=== PATIENT | male | born 1950 | race Caucasian/White ===

== ENCOUNTER 2025-05-05 11:17 | Inpatient (IN) | payer MEDICARE, SELFPAY ==
[2025-05-05] VITALS (14 sets, daily range): BP systolic 134–176; BP diastolic 60–86; PULSE 71–85; RESP 18–26; TEMP 35.8–37.7; O2SAT 79–97; BMI 28.6; BMI 29.3
--- NOTE | 2025-05-05 11:27 | ED_ITS ---
HPI - Weakness General Chief complaint: Weakness Stated complaint: Fever/weakness Time Seen by Provider: 05/05/25 11:20 History of Present Illness HPI Narrative: Patient is a 74-year-old male history of diabetes coronary artery disease, lower extremity cellulitis presenting to day with just increasing weakness. He reports that [place] but was having some of his normal 18 pains. Today his called EMS because she was worried he was having increasing weakness. EMS reports fever but he does have 99.9F temperature here. He is also noted to be severely hypoxic on 6 L nasal cannula 90%. EMS reports that he did drop into the 70s with exertion. He denies it he is having shortness of breath or chest pain. He denies any productive cough. at bedside reports that [place] got [place] she noticed today that he was a little confused and was shaking uncontrollably. She did not notice that he had a fever. He has previously been septic before from cellulitis. She was quite concerned and brought him directly Related Data Home Medications ?Medication ?Instructions ?Recorded ?Confirmed allopurinol 300 mg tablet 300 mg PO DAILY 05/05/25 aspirin 81 mg tablet 81 mg PO DAILY 05/05/2504/18 atenolol 50 mg tablet 50 mg PO DAILY 05/05/2504/18 atorvastatin 40 mg tablet 40 mg PO DAILY 05/05/2504/18 betamethasone, augmented 0.05 % 1 applic topical BID 1 05/05/25 topical cream calcitriol 0.25 mcg capsule 0.25 mcg PO DAILY 05/05/25 05/05/25 dapagliflozin propanediol 10 mg 10 mg PO DAILY 5 05/05/25 tablet (Farxiga) gabapentin 300 mg capsule 300 mg PO 3XD 05/05/2505/05 hydrocodone 10 mg-acetaminophen 1 tab PO DAILY PRN chr onic pain 05/05/25 05/05/25 325 mg tablet insulin glargine 100 unit/mL (3 33 unit SUBCUT DAILY 1 05/05/25 mL) subcutaneous pen (Lantus Solostar U-100 Insulin) lisinopril 40 mg tablet 40 mg PO DAILY 05/05/2504/18 nifedipine 60 mg tablet,extended 60 mg PO DAILY 05/05/25 release semaglutide 7 mg tablet (Rybelsus) 7 mg PO .every othe r day 05/05/25 05/05/25 sennosides 8.6 mg tablet (Linda-adrien) 8.6 mg PO ONCE PM 05/05/25 05/05/25 vit C 250 mg-vit E 90 mg-zinc 40 1 tab PO BID 05/05/25 05/05/25 mg-copper 1 [id number]-[id number] capsule (PreserVision AREDS-2) Allergies Allergy/AdvReac Type Severity Reaction Status Date / Time amoxicillin (From Augmentin) Allergy Unknown Abdominal Verified 05/05/25 14:20 Pain cephalexin Allergy Unknown Rash Verified 05/05/25 14:20 clavulanic acid (From Allergy Unknown Abdominal Verified 05/05/25 14:20 Augmentin) Pain colchicine Allergy Unknown Rash Verified 05/05/25 14:20 Patient History Medical History Chronic low back pain Chronic, continuous use of opioids CKD stage 4 due to type 2 diabetes mellitus Coronary artery disease Diabetic neuropathy Essential hypertension History of tobacco use Mixed hyperlipidemia Peripheral arterial disease Stasis dermatitis Type 2 diabetes mellitus with stage 4 chronic kidney disease Umbilical hernia Venous (peripheral) insufficiency Social History household members: spouse Smoking Status: Never smoker alcohol intake: current Exam Initial Vital Signs Initial Vital Signs: Vital Signs Temperature 99.9 F H 05/05/25 11:24 Pulse Rate 85 05/05/25 11:24 Respiratory Rate 22 05/05/25 11:24 Blood Pressure 176/72 H 05/05/25 11:24 Pulse Oximetry 79 L 05/05/25 11:24 Oxygen Delivery Method Room Air 05/05/25 11:24 GENERAL: Alert chronically ill 74-year-old male and in [no acute] distress. HEENT: Head atraumatic,EOMI, pupils reactive, face symmetric, [moist] mucous membranes CARDIOVASCULAR: Regular rate and rhythm without murmurs, rubs or gallops. RESPIRATORY: Decreased breath sounds ABDOMEN: Soft, nontender. Normoactive bowel sounds all 4 quadrants. No guarding or rebound. EXTREMITIES: Normal range of motion, no clubbing or edema. Neurovascularly intact NEUROLOGICAL: Alert and oriented x4.Normal gait and speech. Cranial nerves II through XII grossly intact. SKIN: Lower extremity chronic venous stasis with some mild erythema no significant streaking or extended. Course Orders Ordered: ED Orders 05/05/25 11:27 CT angio chest PE protocol Stat 05/05/25 11:28 Complete Blood Count AUTO DIFF Stat Comprehensive Metabolic Panel Stat Lactate (Lactic Acid) Stat NT-proBNP (BNP-Adult 18+) Stat PTT Partial Thromboplastin Tanner Stat Procalcitonin Stat Prothrombin Time INR Stat Respiratory Panel (Film Array) Stat Troponin & CK Cardiac Panel Stat EKG-12 Lead Stat 05/05/25 11:55 Blood Culture Stat 05/05/25 12:21 ABG [Arterial Blood Gas] STAT 05/05/25 12:53 Urinalysis and Microscopic Stat Acetaminophen (Acetaminophen 325 Mg Tablet) 650 mg PO Q6H PRN PRN Reason: Fever/Mild Pain (1-3) Hydrocodone Bitart/Acetaminophen (Hydrocodone/Acet 10/325 Tablet) 1 tab PO DAILY PRN PRN Reason: Pain, Moderate (4-6) Last Admin: 05/05/25 18:25 Dose: 1 tab Documented By: BG Allopurinol (Allopurinol 100 Mg Tablet) 150 mg PO DAILY [facility] Aspirin (Aspirin Ec 81 Mg Tablet) 81 mg PO DAILY [facility] Atenolol (Atenolol 25 Mg Tablet) 50 mg PO DAILY [facility] Atorvastatin Calcium (Atorvastatin 20 Mg Tablet) 40 mg PO DAILY [facility] Betamethasone Dipropionate (Betamethasone Dip 0.05% Cream 15 Gm) 1 applic TOP BID [facility] Calcitriol (Calcitriol 0.25 Mcg Capsule) 0.25 mcg PO DAILY [facility] Enoxaparin Sodium (Enoxaparin 30 Mg/0.3 Ml Syringe) 30 mg SUBCUT DAILY [facility] Gabapentin (Gabapentin 300 Mg Capsule) 900 mg PO BEDTIME [facility] Dextrose (D10w) 100 mls @ 1,200 mls/hr IV PRN PRN PRN Reason: Hypoglycemia Levofloxacin (Levaquin) 750 mg in 150 mls @ 100 mls/hr IV Q48H [facility] Insulin Glargine (Insulin Glargine 100 Unit/Ml 3ml Pen) 33 unit SUBCUT BEDTIME [facility] Insulin Human Lispro (Insulin Lispro 100 Unit/Ml 3ml Vial) 0 unit SUBCUT ACHS INO; Protocol Last Admin: 05/05/25 16:55 Dose: Not Given Documented By: MM Lisinopril (Lisinopril 20 Mg Tablet) 40 mg PO DAILY [facility] Lutein (Vit C/E/Zn/Coppr/Lutein/Zeaxan Capsule) 1 cap PO BID [facility] Naloxone HCl (Naloxone 0.4 Mg/Ml Vial) 0.2 mg IV Q2MIN PRN PRN Reason: Opiate Reversal Nifedipine (Nifedipine 30 Mg Tab Er) 60 mg PO DAILY [facility] Sennosides (Sennosides 8.6 Mg Tablet) 8.6 mg PO BEDTIME IN[facility] Discontinued Medications Azithromycin (Azithromycin 250 Mg Tablet) 500 mg PO Q24H INO Stop: 05/09/25 11:59 Ceftriaxone Sodium 2,000 mg/ (Sodium Chloride) 100 mls @ 200 mls/hr IV NOW ONE Stop: 05/05/25 12:21 Last Infusion: 05/05/25 14:06 Dose: Infused Documented By: Admin: 05/05/25 13:24 Dose: 200 mls/hr Documented By: EMERSONF Azithromycin 500 mg/ Dextrose 250 mls @ 250 mls/hr IV NOW ONE Stop: 05/05/25 12:21 Last Infusion: 05/05/25 14:05 Dose: Infused Documented By: Admin: 05/05/25 12:32 Dose: 250 mls/hr Documented By: SGF Sodium Chloride (Normal Saline 0.9%) 1,000 mls @ 1,000 mls/hr IV BOLUS ONE Stop: 05/05/25 14:31 Last Infusion: 05/05/25 16:56 Dose: Infused Documented By: Admin: 05/05/25 14:06 Dose: 1,000 mls/hr Documented By: Ceftriaxone Sodium 1,000 mg/ (Sodium Chloride) 100 mls @ 200 mls/hr IV Q24H [facility] Stop: 05/11/25 11:59 Non-Formulary Medication (Dapagliflozin Propanediol [Farxiga]) 10 mg PO DAILY [facility] Non-Formulary Medication (Semaglutide [Rybelsus]) 7 mg PO .every other day INO Vital Signs Vital signs: Vital Signs - 8 hr 05/05/25 11:24 05/05/25 11:35 05/05/25 11:51 Temperature 99.9 F H Pulse Rate 85 Respiratory Rate 22 Blood Pressure 176/72 H 158/86 H Pulse Oximetry 79 L 92 Oxygen Delivery Method Room Air 05/05/25 11:51 05/05/25 11:53 05/05/25 11:53 Temperature Pulse Rate 85 81 Respiratory Rate 26 H 26 H Blood Pressure 156/82 H Pulse Oximetry 89 L 91 Oxygen Delivery Method 05/05/25 12:00 05/05/25 12:00 05/05/25 12:30 Temperature Pulse Rate 80 82 Respiratory Rate 23 18 Blood Pressure 163/74 H Pulse Oximetry 92 95 Oxygen Delivery Method 05/05/25 12:30 05/05/25 13:00 05/05/25 13:01 Temperature Pulse Rate 80 Respiratory Rate 23 Blood Pressure 168/76 H 163/69 H Pulse Oximetry 93 Oxygen Delivery Method 05/05/25 13:01 05/05/25 13:30 05/05/25 13:30 Temperature 99.3 F Pulse Rate 80 79 Respiratory Rate 22 26 H Blood Pressure 159/69 H Pulse Oximetry 95 95 Oxygen Delivery Method 05/05/25 14:00 05/05/25 14:00 05/05/25 14:30 Temperature Pulse Rate 79 Respiratory Rate 24 Blood Pressure 149/70 H 134/63 Pulse Oximetry 97 Oxygen Delivery Method 05/05/25 14:30 Temperature Pulse Rate 71 Respiratory Rate 19 Blood Pressure Pulse Oximetry 95 Oxygen Delivery Method MDM - Weakness Lab Data 05/05/25 11:28 05/05/25 11:28 Labs: Lab Results 05/05/25 05/05/25 05/05/25 Range/Units 11:28 12:44 12:53 WBC 16.9 H (4.5-11.0) X10^3/uL RBC 3.74 L (4.5-5.9) X10^6/uL Hgb 11.3 L (13.5-17.5) g/dL Hct 35.2 L (41-53) % MCV 94.2 (80-100) fL MCH 30.3 (26-34) PG MCHC 32.2 (30-36) % RDW 16.3 H (11.6-14.8) % Plt Count 210 (150-400) X10^3/uL Neut % (Auto) 85.9 H (50-75) % Lymph % (Auto) 7.6 L (25-40) % [place] % (Auto) 4.7 (3-14) % Eos % (Auto) 1.2 L (2-4) % Baso % (Auto) 0.6 (0-2) % Neut # (Auto) 69824 H (0133-1223) /uL Lymph # (Auto) 1300 (4253-0123) /uL [place] # (Auto) 800 (0-900) /uL Eos # (Auto) 200 (0-450) /uL Baso # (Auto) 100 (0-100) /uL PT 11.0 (9.4-12.5) SECONDS INR 1.0 (0.9-1.3) APTT 27 (25.1-36.5) SECONDS ABG Sample Site Left radial ABG pH 7.39 (7.35-7.45) ABG pCO2 34.8 L (35-45) mmHg ABG pO2 76 L (80-100) mmHg ABG HCO3 21 L (23-27) mmol/L ABG Total CO2 20 L (23-27) mmol/L ABG O2 Saturation 95 (95-100) % ABG Base Excess -3.4 L (-2-3) mmol/L Fritz Test Positive O2 Delivery Device Cannula FiO2 % 48.0 % % Sodium 143 (137-145) mmol/L Potassium 5.0 (3.4-5.1) mmol/L Chloride 111 H (98-107) mmol/L Carbon Dioxide 18 L (22-32) mmol/L BUN 55 H (9-20) mg/dL Creatinine 2.85 H (0.66-1.25) mg/dL Estimated GFR 22 L (>60) mL/min BUN/Creatinine Ratio 19.3 (6-22) Glucose 116 H (70-99) mg/dL Lactate 1.9 (0.7-2.1) mmol/L Calcium 9.7 (8.4-10.2) mg/dL Total Bilirubin 0.9 (0.2-1.3) mg/dL AST 34 (17-59) IU/L ALT 18 (<50) IU/L Alkaline Phosphatase 96 (38-126) U/L Total Creatine Kinase 228 H (55-170) U/L Troponin I 0.016 (0.01-0.034) ng/mL NT-Pro-B Natriuret Pep 1080 H (<450) pg/mL Total Protein 7.9 (6.3-8.2) g/dL Albumin 4.4 (3.5-5.0) g/dL Globulin 3.5 (1.7-4.1) g/dL Albumin/Globulin Ratio 1.3 (1.0-2.8) Procalcitonin 0.207 (<0.5) ng/mL Urine Color Yellow Urine Appearance Clear Urine pH 6.0 (4.5-8.0) Ur Specific [place] 1.015 (1.000-1.035) Urine Protein 2+ H (Negative) Urine Glucose (UA) 1+ H (Negative) g/dL Urine Ketones Negative (NEGATIVE) Urine Occult Blood 1+ H (Negative) Urine Nitrate Negative (Negative) Urine Bilirubin Negative (NEGATIVE) Urine Urobilinogen 0.2 (0.2) E.U./dL Ur Leukocyte Esterase Negative (NEGATIVE) Urine RBC 0-1/hpf (0-5/HPF) Urine WBC 0-1/hpf (0-5/HPF) Ur Squamous Epith Cells 0-1 /hpf (0-5/HPF) Urine Bacteria Occasional (0-1) (None) Ur Culture Indicated? Cult not indicated Vol Urine Centrifuged 10ml (spun) Chlamy pneumoniae PCR Not detected (Not Detect) Adenovirus (PCR) Not detected (Not Detect) B. pertussis DNA (PCR) Not detected (Not Detect) B.parapertussis DNA PCR Not detected (Not Detecte) Coronavirus OC43 (PCR) Not detected (Not Detect) Coronavirus HKU1 (PCR) Not detected (Not Detect) Coronavirus 229E (PCR) Not detected (Not Detect) SARS-CoV-2 (PCR) Not detected (Not Detecte) Coronavirus NL63 (PCR) Not detected (Not Detect) Human Metapneumovir PCR Not detected (Not Detect) Influenza Type A (PCR) Not detected (Not Detect) Influenza Type B (PCR) Not detected (Not Detect) M. pneumoniae (PCR) Not detected (Not Detect) Parainfluenza 1 (PCR) Not detected (Not Detect) Parainfluenza 2 (PCR) Not detected (Not Detect) Parainfluenza 3 (PCR) Not detected (Not Detect) Parainfluenza 4 (PCR) Not detected (Not Detect) RSV (PCR) Not detected (Not Detect) Entero/Rhino (PCR) Not detected (Not Detect) Urine Dip Bedside Urine Glucose 500 mg/dl Bedside Urine Bilirubin - Negative Bedside Urine Ketone - Negative Urine Specific [place] 1.010 Bedside Urine Occult Blood + Bedside Urine pH 6.0 Bedside Urine Protein + 30 Bedside Urine Urobilinogen - Negative Bedside Urine Nitrite - Negative Bedside Urine Leukocytes - Negative Esterase Imaging Data CT scan - chest: Radiologist Impression: PROCEDURE: CT ANGIO CHEST PE PROTOCOL INDICATIONS: sever hypoxia TECHNIQUE: After the administration of intravenous contrast, 2 mm thick sections acquired from the pulmonary apices to the posterior costophrenic angles. MIP reformats of the arterial vasculature were utilized. For radiation dose reduction, the following was used: automated exposure control, adjustment of mA and/or kV according to patient size. COMPARISON: None. FINDINGS: Pulmonary arteries: Pulmonary arteries are normal in size, and demonstrate no intraluminal filling defects to suggest central pulmonary embolism. Lower Neck: No enlarged lymph nodes. Thyroid: No thyroid nodules which require sonographic follow up, per consensus guidelines. Axillae: No enlarged lymph nodes. Chest Wall: Unremarkable. Bones: Unremarkable. Lungs and Pleura: Bilateral lower lobe pulmonary infiltrates consistent with pneumonia. No pleural effusions. Mediastinal vascular clips and noted. Mediastinal adenopathy measures up to 1.3 cm Heart: Heart size is normal. No pericardial effusion. Thoracic Vessels: No aortic aneurysm. Mediastinum and Cathy: No enlarged lymph nodes. Esophagus: No wall thickening. No hiatal hernia. Upper Abdomen: Visualized upper abdomen solid organs and bowel loops appear normal. IMPRESSION: No evidence of pulmonary embolism, aortic dissection or aneurysm. Bilateral lower lobe dense pulmonary infiltrates consistent with pneumonia. Approved by: Joseph Schafer M.D. on 05/05/2025 at 11:56 ECG Data Attestation: I personally reviewed and interpreted this ECG as follows: Interpretation: Junction rate 84 PVC noted MDM Narrative Medical decision making narrative: MDM CC: Weakness Complicating co-morbidities: Diabetes, coronary artery disease Data collected from: and patient Medical records reviewed: None Differential considered: Viral illness pneumonia congestive heart failure pulmonary embolism pneumothorax Exam documented above, pertinent findings include: Chronically ill 74-year-old male decreased breath sounds abdomen soft nontender chronically lower extremity erythema Lab Test results independently reviewed as above. Pertinent findings: CBC WBC 16.9 with left shift CMP sodium is 143 potassium 5.0 chloride 111 carbon dioxide 18 BUN 55 creatinine 2.85 glucose 116 unclear what his baseline kidney function is Lactate 1.9, procalcitonin 0.20 Bilirubin liver enzymes within normal limits Troponin 0.016 BNP 1080 ABG 7.39/34.8/76/21 Independently reviewed EKG as above junctional rhythm rate 84 no ischemia none prior Imaging studies independently reviewed: CT angio no pulmonary embolisms bilateral lower lobe dense infiltrates with a Consultations: [ Dr. Batista in ED to see and evaluate patient Treatments: IV fluids, Rocephin and azithromycin Discussion Patient is 74-year-old male presenting today with weakness. . He is found to be hypoxic requiring 5 L nasal cannula. His ABG does show he has a PaO2 of 76 on about [address] angio confirms that he has pneumonia. He does have leukocytosis of 16 with a left shift however he has a normal lactate. His blood pressure and heart rate are stable he is actually hypertensive and not hypotensive. He does not have any sign of severe sepsis. He is treated for community-acquired pneumonia with Rocephin and azithromycin. I did discuss with patient and he is a code would be intubated if needed. He currently is tolerating nasal cannula well Discharge Plan Departure Patient Disposition: Admitted As Inpatient Clinical Impression: Acute hypoxic respiratory failure, Pneumonia Admit Date/Time: 05/05/25 14:30 Admit Provider: Leroy Batista V
--- NOTE | 2025-05-05 11:28 | EKG_ITS ---
[address] [id number] [address] [address] Test Date: 2025-05-05 Pat Name: Doe Schwartz Department: Room: Gender: Male Performance Consultant: : 1950 Requested By: Order Number: [id number] Reading MD: Evin Trinh MD Measurements Intervals [place] Rate: 84 P: [place]: QRS: -20 QRSD: 98 T: 59 QT: 370 QTc: 437 Interpretive Statements Unknown supraventricular rhythm NO PRIOR TRACING Electronically Signed On 05-05-2025 14:31:56 PDT by Evin Trinh MD
[2025-05-05 11:43] LABS: Add Manual Diff / Slide Review NO; Hematocrit 35.2 % (41-53); Hemoglobin 11.3 g/dL (13.5-17.5); Lymphocytes Absolute Auto 1300 /uL (1100-4500); Mean Corpuscular HGB Conc 32.2 % (30-36); Mean Corpuscular Hemoglobin 30.3 PG (26-34); Mean Corpuscular Volume 94.2 fL (80-100); Platelet Count 210 X10^3/uL (150-400)
[2025-05-05 11:51] LABS: INR 1.0 (0.9-1.3); Prothrombin Time 11.0 SECONDS (9.4-12.5)
[2025-05-05 11:57] LABS: Alanine Aminotransferase 18 IU/L (<50); Albumin 4.4 g/dL (3.5-5.0); Albumin Globulin Ratio 1.3 (1.0-2.8); Alkaline Phosphatase 96 U/L (38-126); Blood Urea Nitrogen 55 mg/dL (9-20); Calcium 9.7 mg/dL (8.4-10.2); Carbon Dioxide 18 mmol/L (22-32); Chloride 111 mmol/L (98-107); Creatine Kinase 228 U/L (55-170); Estimated Glomerular Filt Rate 22 mL/min (>60); Globulin 3.5 g/dL (1.7-4.1); Glucose 116 mg/dL (70-99); Sodium 143 mmol/L (137-145); Total Protein 7.9 g/dL (6.3-8.2)
[2025-05-05 11:58] LABS: HEMOLYSIS 70 (0-50); Lactate (Lactic Acid) 1.9 mmol/L (0.7-2.1); PTT Partial Thromboplastin Tim 27 SECONDS (25.1-36.5); Potassium 5.0 mmol/L (3.4-5.1)
[2025-05-05 12:07] LABS: NT-proBNP (BNP-Adult 18+) 1080 pg/mL (<450)
[2025-05-05 12:09] LABS: Troponin I 0.016 ng/mL (0.01-0.034)
[2025-05-05 12:14] LABS: Procalcitonin 0.207 ng/mL (<0.5)
[2025-05-05 12:32] LABS: Coronavirus NL 63 Not Detected (Not Detect); SARS- CoV-2 Not Detected (Not Detecte)
[2025-05-05] MEDS: AZITHROMYCIN 500 MG in DEXTROSE 5% IN WATER 250 ML 250 MG IV (12:32)
[2025-05-05 12:48] LABS: Allen Test for ABG Passed? Positive; Blood Gas Collection Site Left Radial; Delivery System Cannula; HCO3 ABG 21 mmol/L (23-27); Oxygen Saturation ABG 95 % (95-100); PCO2 ABG 34.8 mmHg (35-45); PO2 ABG 76 mmHg (80-100); TCO2 ABG 20 mmol/L (23-27)
[2025-05-05 13:09] LABS: Appearance Urine UA CLEAR; Bilirubin Urine UA NEGATIVE (NEGATIVE); Color Urine UA YELLOW; Glucose Urine UA 1+ g/dL (Negative); Ketones Urine UA NEGATIVE (NEGATIVE); Leukocyte Esterase Urine UA NEGATIVE (NEGATIVE); Nitrite Urine UA NEGATIVE (Negative); Occult Blood Urine UA 1+ (Negative); Protein Urine UA 2+ (Negative); Specific Gravity Urine UA 1.015 (1.000-1.035); Urobilinogen Urine UA 0.2 E.U./dL (0.2); pH Urine UA 6.0 (4.5-8.0)
[2025-05-05 13:17] LABS: Culture Indicated Urine Cult Not Indicated
[2025-05-05] MEDS: cefTRIAXone 2,000 MG in SODIUM CHLORIDE 0.9% 100 ML 200 MG IV (13:24)
[2025-05-05] MEDS: SODIUM CHLORIDE 0.9% 1,000 ML 1000 ML IV (14:06)
--- NOTE | 2025-05-05 14:53 | PM.HP.IH.1 ---
History of Present Illness History of Present Illness Date Patient Seen: 05/05/25 Time Patient Seen: 14:05 Chief complaint: Fever/weakness Narrative: 74-year-old man with diabetes, coronary disease, peripheral arterial disease, painful peripheral neuropathy, stage 4 chronic kidney disease and hypertension was camping nearby when he experienced shortness of breath and presented to the emergency department. On further reflection he has had chills over the past several days before he went camping, feeling of these might have been related to his chronic diabetic neuropathy symptoms, but did not have fevers, and did not note significant coughing, and was without nausea, vomiting, abdominal pain, constipation, diarrhea or urinary symptoms. He presented the emergency department where he was found to have bilateral lower lobe pneumonia count was hypoxic with oxygen saturations of 79% on presentation. He was given IV ceftriaxone and azithromycin in the emergency department and admitted for further management and evaluation. Subsequent records demonstrate a history of rash to cephalexin exposure. He is seen in the emergency department and subsequently on the medical floor and denies rash or itching at this time. Baseline creatinine per outside records was 2.43 mg/dL with EGFR 27 mL/minute on 12/13/2024. [facility] Medical History Chronic low back pain Chronic, continuous use of opioids CKD stage 4 due to type 2 diabetes mellitus Coronary artery disease Diabetic neuropathy Essential hypertension History of tobacco use Mixed hyperlipidemia Peripheral arterial disease Stasis dermatitis Type 2 diabetes mellitus with stage 4 chronic kidney disease Umbilical hernia Venous (peripheral) insufficiency Social History Smoking Status: Never smoker Meds Home Medications and Allergies Home Medications ?Medication ?Instructions ?Recorded ?Confirmed ?Type allopurinol 300 mg tablet 300 mg PO DAILY 05/05/25 05/05/25 History aspirin 81 mg tablet 81 mg PO DAILY 05/05/25 05/05/25 History atenolol 50 mg tablet 50 mg PO DAILY 05/05/25 05/05/25 History atorvastatin 40 mg tablet 40 mg PO DAILY 05/05/25 05/05/25 History betamethasone, augmented 0.05 % 1 applic topical BID 05/05/25 05/05/25 History topical cream calcitriol 0.25 mcg capsule 0.25 mcg PO DAILY 05/05/25 05/05/25 History dapagliflozin propanediol 10 mg 10 mg PO DAILY 05/05/25 05/05/25 History tablet (Farxiga) gabapentin 300 mg capsule 300 mg PO 3XD 05/05/25 05/05/25 History hydrocodone 10 mg-acetaminophen 1 tab PO DAILY PRN chronic pain 05/05/25 05/05/25 History 325 mg tablet insulin glargine 100 unit/mL (3 33 unit SUBCUT DAILY 05/05/25 05/05/25 History mL) subcutaneous pen (Lantus Solostar U-100 Insulin) lisinopril 40 mg tablet 40 mg PO DAILY 05/05/25 05/05/25 History nifedipine 60 mg tablet,extended 60 mg PO DAILY 05/05/25 05/05/25 History release semaglutide 7 mg tablet (Rybelsus) 7 mg PO .every other day 05/05/25 05/05/25 History sennosides 8.6 mg tablet (Linda-adrien) 8.6 mg PO ONCE PM 05/05/25 05/05/25 History vit C 250 mg-vit E 90 mg-zinc 40 1 tab PO BID 05/05/25 05/05/25 History mg-copper 1 ip-utcvft-zxdbiu capsule (PreserVision AREDS-2) Allergies Allergy/AdvReac Type Severity Reaction Status Date / Time amoxicillin (From Augmentin) Allergy Unknown Abdominal Verified 05/05/25 14:20 Pain cephalexin Allergy Unknown Rash Verified 05/05/25 14:20 clavulanic acid (From Allergy Unknown Abdominal Verified 05/05/25 14:20 Augmentin) Pain colchicine Allergy Unknown Rash Verified 05/05/25 14:20 Review of Systems Review of Systems ROS: Yes All systems reviewed with the patient and are negative except as otherwise documented Exam Vital Signs (past 8 hours): - 05/05/25 11:24 05/05/25 11:35 05/05/25 11:51 Temperature 99.9 F H Pulse Rate 85 Respiratory Rate 22 Blood Pressure 176/72 H 158/86 H Pulse Oximetry 79 L 92 Oxygen Delivery Method Room Air 05/05/25 11:51 05/05/25 11:53 05/05/25 11:53 Temperature Pulse Rate 85 81 Respiratory Rate 26 H 26 H Blood Pressure 156/82 H Pulse Oximetry 89 L 91 Oxygen Delivery Method 05/05/25 12:00 05/05/25 12:00 05/05/25 12:30 Temperature Pulse Rate 80 82 Respiratory Rate 23 18 Blood Pressure 163/74 H Pulse Oximetry 92 95 Oxygen Delivery Method 05/05/25 12:30 05/05/25 13:00 05/05/25 13:01 Temperature Pulse Rate 80 Respiratory Rate 23 Blood Pressure 168/76 H 163/69 H Pulse Oximetry 93 Oxygen Delivery Method 05/05/25 13:01 05/05/25 13:30 05/05/25 13:30 Temperature 99.3 F Pulse Rate 80 79 Respiratory Rate 22 26 H Blood Pressure 159/69 H Pulse Oximetry 95 95 Oxygen Delivery Method 05/05/25 14:00 05/05/25 14:00 05/05/25 14:30 Temperature Pulse Rate 79 Respiratory Rate 24 Blood Pressure 149/70 H 134/63 Pulse Oximetry 97 Oxygen Delivery Method 05/05/25 14:30 Temperature Pulse Rate 71 Respiratory Rate 19 Blood Pressure Pulse Oximetry 95 Oxygen Delivery Method Oxygen Delivery Method Room Air Narrative Exam Narrative: GENERAL: This is a well-nourished, well-developed patient, in no apparent distress. HEAD: Atraumatic. Normocephalic. No temporal or scalp tenderness. He has a bandage on his forehead that he states is from recent dermatologic work on a skin lesion. EYES: Pupils equal round and reactive. Extraocular motions intact. No scleral icterus. No injection or drainage. ENT: Mucous membranes pink and moist. NECK: Trachea midline. No JVD, bruits or lymphadenopathy. Supple, nontender, no meningeal signs. CARDIOVASCULAR: Regular rate and rhythm without murmurs, gallops, or rubs. RESPIRATORY: Posterior basilar crackles, otherwise good air movement, no wheezing or rhonchi. GASTROINTESTINAL: Abdomen soft, non-tender, nondistended. EXTREMITIES: 1+ edema with chronic stasis dermatitis changes in the lower extremities. BACK: Nontender without deformity or crepitance. No flank tenderness. NEUROLOGIC: Alert, oriented, speech fluent, full upper and lower motor strength, no focal deficits evident. DERMATOLOGIC: No rashes or skin lesions except stasis dermatitis as noted above. Objective Imaging Chest CT angiography 05/05/2025: : Radiologist's impression: No evidence of pulmonary embolism, aortic dissection or aneurysm. Bilateral lower lobe dense pulmonary infiltrates consistent with pneumonia. Labs 05/05/25 11:28 05/05/25 11:28 Labs: Laboratory Results - last 24 hr 05/05/25 05/05/25 05/05/25 11:28 12:44 12:53 WBC 16.9 H RBC 3.74 L Hgb 11.3 L Hct 35.2 L MCV 94.2 MCH 30.3 MCHC 32.2 RDW 16.3 H Plt Count 210 Neut % (Auto) 85.9 H Lymph % (Auto) 7.6 L [place] % (Auto) 4.7 Eos % (Auto) 1.2 L Baso % (Auto) 0.6 Neut # (Auto) 39838 H Lymph # (Auto) 1300 [place] # (Auto) 800 Eos # (Auto) 200 Baso # (Auto) 100 PT 11.0 INR 1.0 APTT 27 ABG Sample Site Left radial ABG pH 7.39 ABG pCO2 34.8 L ABG pO2 76 L ABG HCO3 21 L ABG Total CO2 20 L ABG O2 Saturation 95 ABG Base Excess -3.4 L Fritz Test Positive O2 Delivery Device Cannula FiO2 % 48.0 % Sodium 143 Potassium 5.0 Chloride 111 H Carbon Dioxide 18 L BUN 55 H Creatinine 2.85 H Estimated GFR 22 L BUN/Creatinine Ratio 19.3 Glucose 116 H Lactate 1.9 Calcium 9.7 Total Bilirubin 0.9 AST 34 ALT 18 Alkaline Phosphatase 96 Total Creatine Kinase 228 H Troponin I 0.016 NT-Pro-B Natriuret Pep 1080 H Total Protein 7.9 Albumin 4.4 Globulin 3.5 Albumin/Globulin Ratio 1.3 Procalcitonin 0.207 Urine Color Yellow Urine Appearance Clear Urine pH 6.0 Ur Specific [place] 1.015 Urine Protein 2+ H Urine Glucose (UA) 1+ H Urine Ketones Negative Urine Occult Blood 1+ H Urine Nitrate Negative Urine Bilirubin Negative Urine Urobilinogen 0.2 Ur Leukocyte Esterase Negative Urine RBC 0-1/hpf Urine WBC 0-1/hpf Ur Squamous Epith Cells 0-1 /hpf Urine Bacteria Occasional (0-1) Ur Culture Indicated? Cult not indicated Vol Urine Centrifuged 10ml (spun) Chlamy pneumoniae PCR Not detected Adenovirus (PCR) Not detected B. pertussis DNA (PCR) Not detected B.parapertussis DNA PCR Not detected Coronavirus OC43 (PCR) Not detected Coronavirus HKU1 (PCR) Not detected Coronavirus 229E (PCR) Not detected SARS-CoV-2 (PCR) Not detected Coronavirus NL63 (PCR) Not detected Human Metapneumovir PCR Not detected Influenza Type A (PCR) Not detected Influenza Type B (PCR) Not detected M. pneumoniae (PCR) Not detected Parainfluenza 1 (PCR) Not detected Parainfluenza 2 (PCR) Not detected Parainfluenza 3 (PCR) Not detected Parainfluenza 4 (PCR) Not detected RSV (PCR) Not detected Entero/Rhino (PCR) Not detected Assessment & Plan Assessment & Plan narrative: 1. Community-acquired pneumonia. 2. Acute hypoxic respiratory failure due to 1. 3. Diabetes mellitus, type 2 with stage 4 chronic kidney disease. 4. Coronary artery disease. 5. Peripheral arterial disease. 6. Hypertension. 7. Hyperlipidemia. 8. Chronic kidney disease, stage IV. 9. Painful diabetic neuropathy. Plan: -admit to inpatient -IV levofloxacin 750 mg daily -monitor for rash or reaction to IV ceftriaxone in the emergency department, since discontinued after single dose -monitor cultures -supplemental oxygen -continue routine medications otherwise -sliding scale insulin coverage, usual home Lantus, diabetic diet DVT prophylaxis: Subcutaneous enoxaparin Code status: Full code. Reviewed with the patient on admission. His Alexandra is his surrogate decision maker. Quality MIPS - Admit I confirm the patient?s Advance Care Plan is present, Code status is documented, Surrogate decision maker is in patient?s record [If Yes, STOP here]: Yes [facility] - Meds 'Current medications' to include all prescriptions, [id number]-[id number] products, herbals, cannabis/cannabidiol products, and vitamin/mineral/dietary (nutritional) supplements. I have utilized all available resources to obtain, update, or review the patient?s current medications. [If Yes, STOP here]: Yes [employer] Radiology Assistant Document charge(s): No Charge Codes Initial inpatient/observation care: [id number]
[2025-05-05] MEDS: GABAPENTIN 300 MG CAPSULE 900 MG PO (21:13)
[2025-05-05] MEDS: INSULIN LISPRO 100 UNIT/ML 3ML VIAL SUBCUT (21:13)
[2025-05-05] MEDS: SENNOSIDES 8.6 MG TABLET PO (21:13)
[2025-05-05] MEDS: VIT C/E/ZN/COPPR/LUTEIN/ZEAXAN CAPSULE 1 CAP PO (21:13)
[2025-05-05] MEDS: INSULIN GLARGINE 100 UNIT/ML 3ML PEN 33 UNIT SUBCUT (21:14)
[2025-05-06] VITALS (7 sets, daily range): BP systolic 118–156; BP diastolic 50–69; PULSE 56–72; RESP 18–21; TEMP 35.7–36.2; O2SAT 92–99
[2025-05-06 05:33] LABS: Add Manual Diff / Slide Review NO; Hematocrit 30.6 % (41-53); Hemoglobin 10.2 g/dL (13.5-17.5); Lymphocytes Absolute Auto 1800 /uL (1100-4500); Mean Corpuscular HGB Conc 33.2 % (30-36); Mean Corpuscular Hemoglobin 31.2 PG (26-34); Mean Corpuscular Volume 94.0 fL (80-100); Platelet Count 195 X10^3/uL (150-400)
[2025-05-06 05:47] LABS: Blood Urea Nitrogen 52 mg/dL (9-20); Calcium 9.3 mg/dL (8.4-10.2); Carbon Dioxide 18 mmol/L (22-32); Chloride 111 mmol/L (98-107); Estimated Glomerular Filt Rate 25 mL/min (>60); Glucose 118 mg/dL (70-99); HEMOLYSIS < 15 (0-50); Potassium 4.3 mmol/L (3.4-5.1); Sodium 142 mmol/L (137-145)
[2025-05-06] MEDS: INSULIN LISPRO 100 UNIT/ML 3ML VIAL SUBCUT ×2 (08:14→11:38)
--- NOTE | 2025-05-06 09:41 | PT.IIE ---
Current Diagnoses Pneumonia, unspecified organism (05/05/25) Medical History (Last Reviewed 05/05/25 @ 16:07 by Leroy Batista MD) Chronic low back pain Chronic, continuous use of opioids CKD stage 4 due to type 2 diabetes mellitus Coronary artery disease Diabetic neuropathy Essential hypertension History of tobacco use Mixed hyperlipidemia Peripheral arterial disease Stasis dermatitis Type 2 diabetes mellitus with stage 4 chronic kidney disease Umbilical hernia Venous (peripheral) insufficiency Physical Therapy Inpatient Evaluation/Re-Eval M1 PT/OT-IP Prior Functional Status Start: 05/06/25 09:39 Freq: NEEDED Status: Active Protocol: Document 05/06/25 09:40 [facility] (Rec: 05/06/25 09:47 [facility] [id number]) Medical Review Prior Functional Status Medical History Yes Reviewed Diet/Fluid Regular Consistency Communication slightly MILLE LACS Mobility and Gait indep w/o AD, uses cane prn Activities of Daily indep w/ADLs, helps some w/cleaning Living and IADL's Social History Household Members spouse Living Arrangements Apartment/Condo Number of Floors ( Two Floors Floors) Number of Stairs To 1STE Enter/Railing? Home Environment Standard Height Toilet,Tub/Shower Home Equipment Tub Transfer Bench,Grab Bars In Shower M2 PT-IP Current Condition Start: 05/06/25 09:39 Freq: NEEDED Status: Active Protocol: Document 05/06/25 09:40 [facility] (Rec: 05/06/25 09:47 [facility] [id number]) Physical Therapy Current Condition Current Condition Evaluation Date 05/06/25 Treatment Diagnosis PNA M3 PT-IP Subjective Start: 05/06/25 09:39 Freq: NEEDED Status: Active Protocol: Document 05/06/25 09:40 [facility] (Rec: 05/06/25 09:47 [facility] [id number]) Subjective Physical Therapy Visit Type Type Initial Evaluation Visit Start Time 09:03 Visit Stop Time 09:37 Physical Therapy Visit Comments Patient Comments pt was camping and lives [place] M4 PT-IP Mobility and Gait Start: 05/06/25 09:39 Freq: NEEDED Status: Active Protocol: Document 05/06/25 09:40 [facility] (Rec: 05/06/25 09:47 [facility] [id number]) PT-Bed Mobility Assessment Supine to Sit Supine to Sit Independent Scooting Scooting to Edge of Independent Bed PT-Transfer Assessment Sit to and From Stand Sit to and from Standby Assistance Stand Equipment Transfer Assistive Gait Belt Device Comments Mobility Comments supine to sit Indep BP supine 143/61 and seated 142/67 without symptoms. Pt stood SBA then amb CGA around hospital floor w/PT managing O2 line w/O2 >92% throughout. 2 LOB w/min A for PT to assist. Pt went up/ down stairs recip w/rail CGA w/PT managing O2 line. Pt left with call light in reach in chair and asked to use call light if needs to get up for anything. Gait Assessment Gait Gait Assistance Contact Guard Assist Required: Distance (Feet) 300 Assistive Devices Assistive Device Gait Belt Gait Deviations General Gait Pattern Lateral Trunk Lean,Wide Based Gait Factors Limiting Gait Function Factors Limiting Decreased Sensation,Decreased Strength,Poor Balance Gait Function Comments Gait Comments 1 LOB w/gait and cues needed Stair Climbing Assessment Evaluation Level of Assist On Contact Guard Assistance Stairs Devices Stair Climbing Left Railing,Right Railing Assistive Devices Technique/Endurance Stair Climbing Ascend and Descend Direction Stair Climbing Step Over Step Technique Number of Steps 3 Climbed Query Text: Stair Climbing Set # 4 Repetitions (reps) PT-Balance Assessment Sitting Balance and Reactions Static Sitting Normal Balance Ability Dynamic Sitting Normal Balance Ability Standing Balance and Reactions Static Standing Good Balance Ability Dynamic Standing Good Balance Ability M5 PT-IP Objective Assessments Start: 05/06/25 09:39 Freq: NEEDED Status: Active Protocol: Document 05/06/25 09:40 [facility] (Rec: 05/06/25 09:47 [facility] [id number]) Orientation Orientation/Cognition Level of Alertness Alert Language Function Hard of Hearing Ability Safety Awareness Understands Safety Issues Memory Description No Deficits Noted Strength Lower Extremity Strength Assessment Bilaterally Impaired Hip grossly 4/5 Muscle Tone Muscle Tone WNL Yes M6 PT-IP Treatment Start: 05/06/25 09:39 Freq: NEEDED Status: Active Protocol: Document 05/06/25 09:40 [facility] (Rec: 05/06/25 09:47 [facility] [id number]) Physical Therapy Treatment Education Education Provided Safety M7 PT-IP Assessment and Plan Start: 05/06/25 09:39 Freq: NEEDED Status: Active Protocol: Document 05/06/25 09:40 [facility] (Rec: 05/06/25 09:47 [facility] [id number]) PT Summary Assessment and Plan Potential Rehabilitation Good Potential Status of Condition Evolving at Evaluation Summary Impairments Strength,Balance,Transfers,Gait,Activity Tolerance Assessment Summary Pt presents w/PNA with good motivation to improve his function. He has a supportive and has equipment at home to help him w/ADLs safely. Discussed OP PT or going to a strength/balance class at his local [facility] that he has a membership at once he is feeling better to improve balance. He did have 2 LOB w/PT requiring min A and did require cues during gait for pursed lip breathing and occasional standing rest breaks. He would benefit from skilled PT to improve function to return home safely. Goals Bed Mobility Goal Independent Transfer Goal Independent Gait Goal Independent Gait Distance 250 Other Goals up/down 13 stairs w/rail Days to Meet Goals 5 Frequency of Treatment Frequency Of Once a Day Treatment Treatment Plan Physical Therapy Bed Mobility Training,Transfer Training,Gait Training, Treatment Plan Therapeutic Exercise,Neuromuscular Re-ed Other cont to work on breathing Recommendations and Next Treatment Focus Weight Bearing Status Weight Bearing Full Weight Bearing Status Recommendations To Nursing Amount of Assist 1 Person Assist Needed Discharge Recommendations PT Discharge Home with Assistance,Outpatient PT Recommendations Transportation Needs Private Vehicle at Discharge - PT assist 1
[2025-05-06] MEDS: VIT C/E/ZN/COPPR/LUTEIN/ZEAXAN CAPSULE 1 CAP PO ×2 (10:13→21:55)
[2025-05-06] MEDS: NIFEdipine 30 MG TAB ER 60 MG PO (10:15)
[2025-05-06] MEDS: ASPIRIN EC 81 MG TABLET PO (10:16)
[2025-05-06] MEDS: ATORVASTATIN 20 MG TABLET 40 MG PO (10:16)
[2025-05-06] MEDS: ENOXAPARIN 30 MG/0.3 ML SYRINGE SUBCUT (10:16)
[2025-05-06 11:08] LABS: Hemoglobin A1C% w Est Avg Glu 6.1 % (4.0-6.0)
--- NOTE | 2025-05-06 15:12 | P.PN_ITS ---
Subjective Subjective Date Patient Seen: 05/06/25 Time Patient Seen: 08:10 Interval history: Admission note: 74-year-old man with diabetes, coronary disease, peripheral arterial disease, painful peripheral neuropathy, stage 4 chronic kidney disease and hypertension was camping nearby when he experienced shortness of breath and presented to the emergency department. On further reflection he has had chills over the past several days before he went camping, feeling of these might have been related to his chronic diabetic neuropathy symptoms, but did not have fevers, and did not note significant coughing, and was without nausea, vomiting, abdominal pain, constipation, diarrhea or urinary symptoms. He presented the emergency department where he was found to have bilateral lower lobe pneumonia count was hypoxic with oxygen saturations of 79% on presentation. He was given IV ceftriaxone and azithromycin in the emergency department and admitted for further management and evaluation. Subsequent records demonstrate a history of rash to cephalexin exposure. He is seen in the emergency department and subsequently on the medical floor and denies rash or itching at this time. Baseline creatinine per outside records was 2.43 mg/dL with EGFR 27 mL/minute on 12/13/2024. Interval history: 05/06: Patient is feeling much. To get up and walk in the hallway with therapy. He continues to require L of oxygen to maintain saturations over 90% Exam Vital Signs (past 8 hours): - 05/06/25 08:00 05/06/25 13:00 Temperature 97.1 F L 96.2 F L Pulse Rate 56 L 67 Respiratory Rate 21 18 Blood Pressure 156/69 H 141/58 H Pulse Oximetry 99 92 Fraction of Inspired Oxygen 28 SaO2/FiO2 Ratio 339 Oxygen Delivery Method Nasal Cannula Oxygen Flow Rate 2 Narrative Exam Narrative: GENERAL: This is a well-nourished, well-developed patient, in no apparent distress. HEAD: Atraumatic. Normocephalic. No temporal or scalp tenderness. He has a bandage on his forehead that he states is from recent dermatologic work on a skin lesion. EYES: Pupils equal round and reactive. Extraocular motions intact. No scleral icterus. No injection or drainage. ENT: Mucous membranes pink and moist. NECK: Trachea midline. No JVD, bruits or lymphadenopathy. Supple, nontender, no meningeal signs. CARDIOVASCULAR: Regular rate and rhythm without murmurs, gallops, or rubs. RESPIRATORY: Posterior basilar crackles, otherwise good air movement, no wheezing or rhonchi. GASTROINTESTINAL: Abdomen soft, non-tender, nondistended. EXTREMITIES: 1+ edema with chronic stasis dermatitis changes in the lower extremities. NEUROLOGIC: Alert, oriented, speech fluent, full upper and lower motor strength, no focal deficits evident. DERMATOLOGIC: No rashes or skin lesions except stasis dermatitis as noted above. Objective Imaging Chest CT angiography 05/05/2025: : Radiologist's impression: No evidence of pulmonary embolism, aortic dissection or aneurysm. Bilateral lower lobe dense pulmonary infiltrates consistent with pneumonia. Labs 05/06/25 05:05 05/06/25 05:05 Labs: Laboratory Results - last 24 hr 05/05/25 05/05/25 05/05/25 15:26 16:40 20:42 WBC RBC Hgb Hct MCV MCH MCHC RDW Plt Count Neut % (Auto) Lymph % (Auto) [place] % (Auto) Eos % (Auto) Baso % (Auto) Neut # (Auto) Lymph # (Auto) [place] # (Auto) Eos # (Auto) Baso # (Auto) Sodium Potassium Chloride Carbon Dioxide BUN Creatinine Estimated GFR BUN/Creatinine Ratio Glucose POC Whole Bld Glucose 128 H 129 H 196 H Hemoglobin A1c Calcium 05/06/25 05/06/25 05/06/25 05:05 08:07 11:35 WBC 11.8 H RBC 3.25 L Hgb 10.2 L Hct 30.6 L MCV 94.0 MCH 31.2 MCHC 33.2 RDW 16.0 H Plt Count 195 Neut % (Auto) 74.8 Lymph % (Auto) 15.5 L [place] % (Auto) 8.1 Eos % (Auto) 1.1 L Baso % (Auto) 0.5 Neut # (Auto) 8800 H Lymph # (Auto) 1800 [place] # (Auto) 1000 H Eos # (Auto) 100 Baso # (Auto) 100 Sodium 142 Potassium 4.3 Chloride 111 H Carbon Dioxide 18 L BUN 52 H Creatinine 2.61 H Estimated GFR 25 L BUN/Creatinine Ratio 19.9 Glucose 118 H POC Whole Bld Glucose 142 H 137 H Hemoglobin A1c 6.1 H Calcium 9.3 PFSH Medical History Chronic low back pain Chronic, continuous use of opioids CKD stage 4 due to type 2 diabetes mellitus Coronary artery disease Diabetic neuropathy Essential hypertension History of tobacco use Mixed hyperlipidemia Peripheral arterial disease Stasis dermatitis Type 2 diabetes mellitus with stage 4 chronic kidney disease Umbilical hernia Venous (peripheral) insufficiency Social History household members: spouse Smoking Status: Never smoker alcohol intake: current Assessment & Plan Assessment & Plan narrative: 1. Community-acquired pneumonia. 2. Acute hypoxic respiratory failure due to 1. 3. Diabetes mellitus, type 2 with stage 4 chronic kidney disease. Hemoglobin A1c 6.1%. Baseline creatinine 2.43 mg/dL. 4. Coronary artery disease. 5. Peripheral arterial disease. 6. Hypertension. 7. Hyperlipidemia. 8. Chronic kidney disease, stage IV. 9. Painful diabetic neuropathy. Plan: -IV levofloxacin 750 mg daily -no sign of rash or reaction to IV ceftriaxone in the emergency department, since discontinued after single dose -monitor cultures negative to date -supplemental oxygen -continue routine medications otherwise -physical therapy -sliding scale insulin coverage, usual home Lantus, diabetic diet DVT prophylaxis: Subcutaneous enoxaparin Code status: Full code. Reviewed with the patient on admission. His Alexandra is his surrogate decision maker. KP: 05/07 [employer]EE [employer] Document charge(s): No Charge Codes Subsequent inpatient/observation care: [id number]
--- NOTE | 2025-05-06 15:24 | CM.DANOTE ---
Patient is a 74 yo male who was admitted INPT Status on 05/05/25 for BIlateral PNA/hypoxia. Pt has [facility] MCR under [employer] for insurance and his PCP is Elsy Fernandes. EMR was reviewed. Per MD, pt with hx of diabetes, neuropathy and stage 4 CKD and admitted after weakness and SOB for bilateral PNA and currently on 2LO2 and anticipate another 1-2 days before weaned off O2 and stable for discharge. Per PT, pt able to ambulate the hallways and completed stairs but need O2 on for the exertion and recommending home with outpt PT. Pt confirms he lives in [place] in an apt with his and is independent with ADLs at baseline. He confirms his neuropathy sometimes makes ambulation painful but does not typically use DME for mobility. Pt does not have oxygen at home at baseline. Pt and spouse were camping locally when he was admitted and his preference is home to [place] via family POV when stable and does not currently anticipate any d/c needs at this time. YASH Lauren Discharge Planning/Care Management CM Discharge Assessment Start: 05/05/25 14:42 Freq: Status: Active Protocol: Document 05/06/25 15:23 BF (Rec: 05/06/25 15:24 BF [id number]) Discharge Planning Assessment Assigned Discharge YASH Melendez [place] Provider Elsy Fernandes Insurance [facility] DPOA/Assigned spouse Alexandra Designee Name Contact Information [phone] Advance Directives? No Advance Directives No on File History Provided By Patient,Medical Record Has Patient been No admitted in last 30 days? Prior Living Apartment/Condo Arrangements Household Members spouse Type of Drives own vehicle transporation used prior to admit Independent with ADL Yes 's Is patient alert and Yes oriented? Caregiver for No Another Patient/Family OP PT Therapy Preference Barriers to No Discharge Discharge Plan Home Community Services Physical Therapy Transportation Spouse to transport Arrangement Referrals Initiated None needed Whiteboard Updated Yes in Patient Room with name and ext. # of Barbecue Cook Review Status In Process Please Provide Date 05/06/25 Initial DC Assessment Was Performed Next Review Type Continued Stay Review
[2025-05-06] MEDS: GABAPENTIN 300 MG CAPSULE 900 MG PO (21:55)
[2025-05-06] MEDS: SENNOSIDES 8.6 MG TABLET PO (21:55)
[2025-05-06] MEDS: INSULIN GLARGINE 100 UNIT/ML 3ML PEN 33 UNIT SUBCUT (21:56)
[2025-05-07 03:00] VITALS: BP 140/62; PULSE 72; RESP 20; TEMP 36.6; O2SAT 98
[2025-05-07 07:00] VITALS: BP 136/61; PULSE 73; RESP 18; TEMP 35.8; O2SAT 95
[2025-05-07] MEDS: INSULIN LISPRO 100 UNIT/ML 3ML VIAL SUBCUT ×2 (08:44→12:15)
[2025-05-07] MEDS: NIFEdipine 30 MG TAB ER 60 MG PO (08:49)
[2025-05-07 08:53] VITALS: BP 136/61; PULSE 73
[2025-05-07] MEDS: VIT C/E/ZN/COPPR/LUTEIN/ZEAXAN CAPSULE 1 CAP PO (08:54)
[2025-05-07] MEDS: ATORVASTATIN 20 MG TABLET 40 MG PO (08:54)
[2025-05-07] MEDS: ASPIRIN EC 81 MG TABLET PO (08:55)
--- NOTE | 2025-05-07 09:46 | PT.IPTN ---
Current Diagnoses Pneumonia, unspecified organism (05/05/25) Physical Therapy Treatment Note M2 PT-IP Current Condition Start: 05/06/25 09:39 Freq: NEEDED Status: Active Protocol: Document 05/06/25 09:40 [facility] (Rec: 05/06/25 09:47 [facility] [id number]) Physical Therapy Current Condition Current Condition Evaluation Date 05/06/25 Treatment Diagnosis PNA M3 PT-IP Subjective Start: 05/06/25 09:39 Freq: NEEDED Status: Active Protocol: Document 05/07/25 09:42 [facility] (Rec: 05/07/25 09:46 [facility] [id number]) Subjective Physical Therapy Visit Type Type Treatment Note Visit Start Time 09:24 Visit Stop Time 09:40 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 has been off O2 since yesterday M4 PT-IP Mobility and Gait Start: 05/06/25 09:39 Freq: NEEDED Status: Active Protocol: Document 05/07/25 09:42 [facility] (Rec: 05/07/25 09:46 [facility] [id number]) PT-Bed Mobility Assessment Supine to Sit Supine to Sit Independent,Head of Bed Elevated Scooting Scooting to Edge of Independent Bed PT-Transfer Assessment Sit to and From Stand Sit to and from Independent Stand Equipment Transfer Assistive Gait Belt Device Orthotic/Prosthetic No Devices or Brace: Gait Assessment Gait Gait Assistance Standby Assistance Required: Distance (Feet) 500 Able to Maintain Yes Weight Bearing Status During Gait Assistive Devices Assistive Device Gait Belt Orthotic/Prosthetic No Devices or Brace: Gait Deviations General Gait Pattern Lateral Trunk Lean Factors Limiting Gait Function Factors Limiting Decreased Strength,Pain Gait Function Stair Climbing Assessment Evaluation Level of Assist On Standby Assistance Stairs Devices Stair Climbing Left Railing,Right Railing Assistive Devices Technique/Endurance Stair Climbing Ascend and Descend Direction Stair Climbing Step Over Step Technique Number of Steps 3 Climbed Stair Climbing Set # 3 Repetitions (reps) Functional Assessments Functional Tests Tinetti Balance and 28 Gait Assessment M5 PT-IP Objective Assessments Start: 05/06/25 09:39 Freq: NEEDED Status: Active Protocol: Document 05/06/25 09:40 [facility] (Rec: 05/06/25 09:47 [facility] [id number]) Orientation Orientation/Cognition Level of Alertness Alert Language Function Hard of Hearing Ability Safety Awareness Understands Safety Issues Memory Description No Deficits Noted Strength Lower Extremity Strength Assessment Bilaterally Impaired Hip grossly 4/5 Muscle Tone Muscle Tone WNL Yes M6 PT-IP Treatment Start: 05/06/25 09:39 Freq: NEEDED Status: Active Protocol: Document 05/07/25 09:42 [facility] (Rec: 05/07/25 09:46 [facility] [id number]) Physical Therapy Treatment Education Education Provided Safety M7 PT-IP Assessment and Plan Start: 05/06/25 09:39 Freq: NEEDED Status: Active Protocol: Document 05/07/25 09:42 [facility] (Rec: 05/07/25 09:46 [facility] [id number]) PT Summary Assessment and Plan Summary Assessment Summary Pt did well with mobility today w/O2 above 90% throughout mobility. Pt had no LOB and was able to ascend/descend stairs SBA w/1-2 rails. He is back to baseline at this time so DC PT. Low risk for falls per tinetti so indep in room. pt edu to call if feels lightheaded, dizzy or weak. Goals Bed Mobility Goal Independent Transfer Goal Independent Gait Goal Independent Gait Distance 250 Other Goals up/down 13 stairs w/rail Days to Meet Goals 5 Frequency of Treatment Frequency Of Discharge Treatment Recommendations To Nursing Amount of Assist Independent Needed Discharge Recommendations PT Discharge Home with Assistance,Outpatient PT Recommendations Transportation Needs Private Vehicle at Discharge
--- NOTE | 2025-05-07 10:34 | P.DS_ITS ---
History of Present Illness History of Present Illness Date Patient Seen: 05/07/25 Chief complaint: Fever/weakness Narrative: History of present illness: Pneumonia with fever and weakness and hypoxic respiratory failure History of present illness: 74-year-old man with diabetes, coronary disease, peripheral arterial disease, painful peripheral neuropathy, stage 4 chronic kidney disease and hypertension was camping nearby when he experienced shortness of breath and presented to the emergency department. On further reflection he has had chills over the past several days before he went camping, feeling of these might have been related to his chronic diabetic neuropathy symptoms, but did not have fevers, and did not note significant coughing, and was without nausea, vomiting, abdominal pain, constipation, diarrhea or urinary symptoms. He presented the emergency department where he was found to have bilateral lower lobe pneumonia count was hypoxic with oxygen saturations of 79% on presentation. He was given IV ceftriaxone and azithromycin in the emergency department and admitted for further management and evaluation. Subsequent records demonstrate a history of rash to cephalexin exposure. He is seen in the emergency department and subsequently on the medical floor and denies rash or itching at this time. Baseline creatinine per outside records was 2.43 mg/dL with EGFR 27 mL/minute on 12/13/2024. Interval history: 05/06: Patient is feeling much. To get up and walk in the hallway with therapy. He continues to require L of oxygen to maintain saturations over 90% 05/07: Much better ambulating and oxygenating normally without supplemental oxygen anxious to go home patient discharged on oral levofloxacin Review of systems: No fever chills rigors Shortness for breath No nausea vomiting No palpitations Physical exam: No acute distress No labored respirations Abdomen nondistended Alert and oriented Neuro nonfocal Assessment and plan: 1. Community-acquired pneumonia. 2. Acute hypoxic respiratory failure due to 1. Resolved 3. Diabetes mellitus, type 2 with stage 4 chronic kidney disease. Hemoglobin A1c 6.1%. Baseline creatinine 2.43 mg/dL. 4. Coronary artery disease. Stable 5. Peripheral arterial disease. State 6. Hypertension. 7. Hyperlipidemia. 8. Chronic kidney disease, stage IV. 9. Painful diabetic neuropathy. Plan: -IV levofloxacin 750 mg daily converted to p.o. to take at home -no sign of rash or reaction to IV ceftriaxone in the emergency department, since discontinued after single dose -monitor cultures negative to date -supplemental oxygen -continue routine medications otherwise -physical therapy -sliding scale insulin coverage, usual home Lantus, diabetic diet DVT prophylaxis: Subcutaneous enoxaparin Code status: Full code. Reviewed with the patient on admission. His Alexandra is his surrogate decision maker. Disposition: * Discharge to home: Time based billing: * 35 minutes were involved evaluating this patient including [id number] evaluation discussion patient physical examination review of records discussion with care management team and prescribing Discharge Providers Provider Date of admission: 05/05/25 14:30 Discharge Date: 05/07/25 Primary care physician: Elsy Fernandes MD Consults: 05/06/25 08:19 Consult to Physical Therapy Evaluate & Treat Comment: Physician Instructions: Evaluate and Treat Discharge provider: Godfrey Bone MD Exam Vital Signs (past 8 hours): - 05/07/25 03:00 05/07/25 07:00 05/07/25 08:53 Temperature 97.9 F 96.4 F L Pulse Rate 72 73 73 Respiratory Rate 20 18 Blood Pressure 140/62 136/61 136/61 Pulse Oximetry 98 95 Oxygen Flow Rate 0 Fraction of Inspired Oxygen 28 SaO2/FiO2 Ratio 339 Oxygen Delivery Method Nasal Cannula Oxygen Flow Rate 0 Objective Labs 05/06/25 05:05 05/06/25 05:05 Labs: Laboratory Results - last 24 hr 05/06/25 05/06/25 05/06/25 05:05 11:35 17:03 POC Whole Bld Glucose 137 H 129 H Hemoglobin A1c 6.1 H 05/06/25 05/07/25 20:47 08:26 POC Whole Bld Glucose 155 H 135 H Hemoglobin A1c [facility] Medical History Chronic low back pain Chronic, continuous use of opioids CKD stage 4 due to type 2 diabetes mellitus Coronary artery disease Diabetic neuropathy Essential hypertension History of tobacco use Mixed hyperlipidemia Peripheral arterial disease Stasis dermatitis Type 2 diabetes mellitus with stage 4 chronic kidney disease Umbilical hernia Venous (peripheral) insufficiency Social History household members: spouse Smoking Status: Never smoker alcohol intake: current Discharge Plan Discharge Plan Patient Disposition: Home Discharge orders & Medications Prescriptions: New levofloxacin 500 mg tablet 500 mg PO DAILY Qty: 7 0RF Continued hydrocodone-acetaminophen 10-325 mg tablet 1 tab PO DAILY PRN (Reason: chronic pain) betamethasone, augmented 0.05 % cream 1 applic topical BID Rybelsus 7 mg tablet 7 mg PO .every other day sennosides [Linda-adrien] 8.6 mg tablet 8.6 mg PO ONCE PM nifedipine 60 mg tablet extended release 60 mg PO DAILY lisinopril 40 mg tablet 40 mg PO DAILY insulin glargine [Lantus Solostar U-100 Insulin] 100 unit/mL (3 mL) insulin pen 33 unit SUBCUT DAILY Patient Comments: [NO ORIGINAL SIG] atorvastatin 40 mg tablet 40 mg PO DAILY gabapentin 300 mg capsule 300 mg PO 3XD allopurinol 300 mg tablet 300 mg PO DAILY atenolol 50 mg tablet 50 mg PO DAILY calcitriol 0.25 mcg capsule 0.25 mcg PO DAILY dapagliflozin propanediol [Farxiga] 10 mg tablet 10 mg PO DAILY PreserVision AREDS-2 250-90-40-1 mg capsule 1 tab PO BID aspirin 81 mg tablet 81 mg PO DAILY Follow up/Referrals: Elsy Fernandes MD [Primary Care Provider, Medical] Visit Report/Discharge Packet Stand Alone Forms: Patient Portal/API, Stroke Signs & Symptoms Discharge Data Primary Care Provider: Elsy Fernandes
--- NOTE | 2025-05-07 11:09 | CM.DPNOTE ---
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 ambulated mult labs around floor stable. per provider, will dc home today. P: no new CM needs identified at this time. home with spouse today and likely OP f/u no CM needs. CM team will continue to follow as needed in case any additional DCP needs should arise YASH Jones
--- NOTE | 2025-05-07 13:04 | PC.NURSE ---
No belongings in nurse ware server, pharmacy, or safe. Removed pt PIVs, pt tolerated well. All belongings with pt. Pt stated all questions answered, provided discharge education on medications and symptoms worsening. Pt and spouse stated all questions answered. Provided gauze and tape for dressing change for skin graft on head if needed. Pt escorted via WC by LEOLA Tolliver with spouse to [facility].
== END 2025-05-07 13:00 | disposition home or self-care (01) | DRG 193 ==
LOC: ED 13:59 → AC 14:30
PROVIDERS: Admitting Provider Internal Medicine; Emergency Provider Emergency Medicine; PCP Internal Medicine; Referring Provider Emergency Medicine; Visit Provider Internal Medicine
DX: J18.9 Pneumonia, unspecified organism (principal); J96.01 Acute respiratory failure with hypoxia; N18.4 Chronic kidney disease, stage 4 (severe); E11.22 Type 2 diabetes mellitus with diabetic chronic kidney disease; I25.10 Atherosclerotic heart disease of native coronary artery without angina pectoris; I73.9 Peripheral vascular disease, unspecified; I12.9 Hypertensive chronic kidney disease with stage 1 through stage 4 chronic kidney disease, or unspecified chronic kidney disease; E11.42 Type 2 diabetes mellitus with diabetic polyneuropathy; E78.5 Hyperlipidemia, unspecified; G89.29 Other chronic pain; M54.50 Low back pain, unspecified; Z79.4 Long term (current) use of insulin; Z79.84 Long term (current) use of oral hypoglycemic drugs
CPT/HCPCS: 36415; 36600; 71275; 80048; 80053; 81001; 81003; 82550; 82805; 82962; 83036; 83605; 83880; 84145; 84484; 85025; 85610; 85730; 87040; 87633; 93005; 96361; 96365; 96366; 96368; 97116; 97162; 99284; J0696; J1650; J1815; J1956; J7030; J7050; J7060